=== PATIENT | male | born 1960 | race Caucasian/White ===

== ENCOUNTER 2022-06-02 07:08 | Emergency (ER) | payer OTHER ==
[2022-06-02 07:48] VITALS: BP 153/84; PULSE 64; RESP 18; TEMP 98; BMI 38.4
[2022-06-02] MEDS ORDERED: LIDOCAINE 5% TOPICAL PATCH TP ONE (08:16)
[2022-06-02] MEDS ORDERED: ACETAMINOPHEN 325 MG TABLET (FP) PO ONE (08:16)
[2022-06-02] MEDS ORDERED: ACETAMINOPHEN 325 MG TABLET (FP) ONE (08:28)
[2022-06-02] MEDS ORDERED: LIDOCAINE 5% TOPICAL PATCH ONE (08:28)
[2022-06-02] MEDS ORDERED: POLYETHYLENE GLYCOL (HEALTHYLAX) 3350 17 GM PACKET PO ONE (08:30)
== END 2022-06-02 13:17 | disposition home or self-care (01) ==
LOC: JER 07:08
DX: S22.41XA Multiple fractures of ribs, right side, initial encounter for closed fracture (principal); W01.0XXA Fall on same level from slipping, tripping and stumbling without subsequent striking against object, initial encounter
CPT/HCPCS: 71250-TC; 99284-25